=== PATIENT | female | born 1960 | race Caucasian/White ===

== ENCOUNTER → 2019-04-17 | Outpatient (CLI) | payer BC | LOC: COL.RAD 07:16 | DX: M48.02 Spinal stenosis, cervical region (principal); M54.10 Radiculopathy, site unspecified; M25.78 Osteophyte, vertebrae ==

== ENCOUNTER 2020-05-07 19:44 | Emergency (ER) | payer BC ==
[~2020-05-07] VITALS: Ht 154.9 cm; Wt 79.5 kg
[2020-05-07 19:52] VITALS: TEMP 97.9
[2020-05-07] MEDS ORDERED: FLEXERIL 1010 MG/TAB PO (21:48)
[2020-05-07 22:04] VITALS: BP 134/70; PULSE 78
== END 2020-05-07 22:09 | disposition home or self-care (01) ==
LOC: COL.ER 19:44
DX: S06.0X0A Concussion without loss of consciousness, initial encounter (principal); M25.562 Pain in left knee; M79.672 Pain in left foot; M54.2 Cervicalgia; Z90.710 Acquired absence of both cervix and uterus; Z85.3 Personal history of malignant neoplasm of breast; Z88.5 Allergy status to narcotic agent; Z88.4 Allergy status to anesthetic agent; Z91.041 Radiographic dye allergy status; V89.2XXA Person injured in unspecified motor-vehicle accident, traffic, initial encounter; W22.12XA Striking against or struck by front passenger side automobile airbag, initial encounter
CPT/HCPCS: J2405

== ENCOUNTER → 2020-11-05 | Outpatient (CLI) | payer BC ==
[~2020-11-05] MED LIST: FLEXERIL 1010 MG/TAB PO; NORCO 325 MG-51 TAB PO
== END ==
LOC: MC.RAD 09:15
DX: Z12.31 Encounter for screening mammogram for malignant neoplasm of breast (principal); C50.311 Malignant neoplasm of lower-inner quadrant of right female breast; Z90.12 Acquired absence of left breast and nipple

== ENCOUNTER 2021-01-20 19:45 | Emergency (ER) | payer BC ==
[~2021-01-20] VITALS: Ht 154.9 cm; Wt 77.3 kg
[~2021-01-20 19:45] MED LIST changes: -NORCO 325 MG-51 TAB PO
[2021-01-20 20:36] VITALS: BP 137/65; PULSE 80; TEMP 97.8
[2021-01-21] MEDS ORDERED: NORCO 325 MG-51 TAB PO (10:09)
== END 2021-01-20 21:20 | disposition left against medical advice (07) ==
LOC: COL.ER 19:45
DX: M54.5 Low back pain (principal)

== ENCOUNTER 2021-01-21 09:23 | Emergency (ER) | payer BC ==
[~2021-01-21] VITALS: Ht 154.9 cm; Wt 77.3 kg
[2021-01-21 09:35] VITALS: TEMP 98
[2021-01-21] MEDS ORDERED: NORCO 325 MG-51 TAB PO (10:09)
[2021-01-21 11:00] VITALS: BP 130/62; PULSE 68
== END 2021-01-21 11:01 | disposition home or self-care (01) ==
LOC: COL.ER 09:23
DX: M54.5 Low back pain (principal); G89.29 Other chronic pain; Z90.710 Acquired absence of both cervix and uterus

== ENCOUNTER 2021-03-31 15:45 | Outpatient (RCR) | payer BC ==
[~2021-03-31 15:45] MED LIST changes: +NORCO 325 MG-51 TAB PO
== END 2021-04-30 | disposition home or self-care (01) ==
LOC: WSPT
DX: M54.50 Low back pain, unspecified (principal)

== ENCOUNTER → 2021-11-06 | Outpatient (CLI) | payer BC | LOC: MC.RAD 08:54 | DX: Z12.31 Encounter for screening mammogram for malignant neoplasm of breast (principal); Z85.3 Personal history of malignant neoplasm of breast ==